=== PATIENT | male | born 1990 | race Caucasian/White ===

== ENCOUNTER 2019-11-08 09:15 | Emergency (ER) | payer OTHER ==
[~2019-11-08] VITALS: Ht 185.4 cm; Wt 83.9 kg
[2019-11-08 10:00] VITALS: BP_SYST 123
[2019-11-08] MEDS ORDERED: LIDOCAINE 1%, 20 ML MDV 20 ML ONE (11:33)
[2019-11-08] MEDS ORDERED: SULFAMETHOXAZOLE/TRIMETHOPR DS 1 TABLET PO ONE (11:45)
[2019-11-08] MEDS ORDERED: DIPH-TET-PERTUS Vaccine 0.5 ML VIAL (ADACEL) I.M. ONE (11:45)
[2019-11-08] MEDS ORDERED: IBUPROFEN 600 MG TABLET PO ONE (11:45)
[2019-11-08] MEDS ORDERED: BACITRACIN 1 GM OINT TP ONE (11:51)
[2019-11-08 12:00] VITALS: BP_SYST 123
== END 2019-11-08 12:00 | disposition home or self-care (01) ==
LOC: SED 09:15
DX: S61.211A Laceration without foreign body of left index finger without damage to nail, initial encounter (principal); S61.213A Laceration without foreign body of left middle finger without damage to nail, initial encounter; W23.0XXA Caught, crushed, jammed, or pinched between moving objects, initial encounter; Y93.89 Activity, other specified; Y92.89 Other specified places as the place of occurrence of the external cause; Y99.0 Civilian activity done for income or pay
CPT/HCPCS: 12002; 73140; 90471; 90715; 99283; J2001

== ENCOUNTER 2019-11-15 12:09 | Emergency (ER) | payer OTHER ==
[~2019-11-15] VITALS: Ht 185.4 cm; Wt 83.0 kg
--- NOTE | 2019-11-15 12:32 | NUR ---
Patient triaged and placed in waiting room. VSS and patient appears in no acute distress at this time. Awaiting available bed, and MD notified of need for MSE.
--- NOTE | 2019-11-15 12:42 | NUR ---
Patient to [facility] for evaluation. Side rails up. Report given to SUE Shay.
--- NOTE | 2019-11-15 12:43 | NUR ---
DU Bass in [facility] examining patient.
--- NOTE | 2019-11-15 12:43 | NUR ---
Patient arrived in the ED for suture removal on his left index finger. Denied any chest pain or shortness of breath. Denied any fevers, chills, nausea or vomiting. Patient is alert and oriented x4, respirations even and unlabored, speaking in full sentences, and ambulating with a steady gait. VSS, pain level 0/10. Informed of the approximate wait time. Instructed to notify ED staff for any changes in condition or worsening of symptoms while waiting to be seen by an ED provider. Patient verbalized understanding.
--- NOTE | 2019-11-15 13:15 | NUR ---
Patient given written and verbal discharge instructions and verbalizes understanding. ER MD discussed with patient the results and treatment provided. Patient in stable condition. ID arm band removed. No Rx given. Patient educated on pain management and to follow up with PMD. Pain Scale 0/10. Opportunity for questions provided and answered. Medication side effect fact sheet provided.
[2019-11-15 13:20] VITALS: BP_SYST 124
== END 2019-11-15 13:20 | disposition home or self-care (01) ==
LOC: SED 12:09
DX: S61.211D Laceration without foreign body of left index finger without damage to nail, subsequent encounter (principal); Z48.02 Encounter for removal of sutures; W45.8XXD Other foreign body or object entering through skin, subsequent encounter
CPT/HCPCS: 99281